=== PATIENT | female | born 1990 | race Caucasian/White ===

== ENCOUNTER 2025-01-16 18:38 | Emergency (ER) | payer OTHER ==
[~2025-01-16] VITALS: Ht 157.5 cm; Wt 97.5 kg
[2025-01-16 18:42] VITALS: PULSE 84; RESP 17; TEMP 98.2; O2SAT 97
[2025-01-16] MEDS: TETANUS/DIPHTHERIA TOX ADULT 0.5 ML SYR IM ONE (19:26)
[2025-01-16] MEDS ORDERED: BACITRACIN15 GM TOP (19:30)
[2025-01-16] MEDS: LIDOCAINE HCL 1% LOCAL INJ 20 ML VIAL INJ ONE (19:31)
[2025-01-16] MEDS: LIDOCAINE 1% 5ML-MPF INJ ONE (19:46)
[2025-01-16 19:47] VITALS: BP 163/81; PULSE 85; RESP 18; TEMP 98.3
== END 2025-01-16 19:57 | disposition home or self-care (01) ==
LOC: FSED 18:57
DX: S81.811A Laceration without foreign body, right lower leg, initial encounter (principal); W26.8XXA Contact with other sharp object(s), not elsewhere classified, initial encounter; Y92.89 Other specified places as the place of occurrence of the external cause; E11.9 Type 2 diabetes mellitus without complications; E03.9 Hypothyroidism, unspecified; J45.909 Unspecified asthma, uncomplicated; E66.9 Obesity, unspecified
CPT/HCPCS: 12002; 90471; 90714; 96372; 99284; J2003